=== PATIENT | male | born 1955 | race Caucasian/White ===

== ENCOUNTER 2023-11-03 20:30 | Emergency (ER) | payer MEDICARE ==
[~2023-11-03] VITALS: Ht 182.9 cm; Wt 65.8 kg
[2023-11-03 21:08] VITALS: BP 118/62; PULSE 74; RESP 14; O2SAT 98
[2023-11-03 21:12] LABS: APPEARANCE,URINE CLEAR (CLEAR); BILIRUBIN,URINE NEGATIVE (NEGATIVE); COLOR,URINE YELLOW (YELLOW); GLUCOSE, URINE (UA) NEGATIVE (NEGATIVE); KETONES,URINE NEGATIVE (NEGATIVE); LEUKOCYTE ESTERASE ,URINE 75 Leu/uL (NEGATIVE); NITRATE,URINE NEGATIVE (NEGATIVE); OCCULT BLOOD,URINE SMALL (NEGATIVE); PROTEIN,URINE 20 mg/dL (NEGATIVE); UROBILINOGEN,URINE 3 mg/dL (0.2-1.0)
[2023-11-03 21:15] LABS: ADD UA MICROSCOPIC YES
[2023-11-03 21:33] LABS: BACTERIA,URINE RARE /HPF (None Seen); MUCUS,URINE FEW LPF (None Seen); SQUAMOUS EPITHELIAL CELL,UR RARE /HPF (0-2); WBC,URINE 26-50 /HPF (0-1)
== END 2023-11-03 21:56 | disposition home or self-care (01) ==
LOC: EDH 20:30
DX: R33.9 Retention of urine, unspecified (principal); Z88.1 Allergy status to other antibiotic agents; Z96.0 Presence of urogenital implants
CPT/HCPCS: 51702; 81001; 87088

== ENCOUNTER 2024-03-07 07:55 | Day surgery (SDC) | payer OTHER ==
[2024-03-06 15:18] LABS: BASOPHILS # (AUTO) 0.07 K/uL (0.00-0.20); BASOPHILS % (AUTO) 0.5 % (0.0-5.0); EOSINOPHILS # (AUTO) 0.04 K/uL (0.00-0.70); EOSINOPHILS % (AUTO) 0.3 % (0.0-8.0); HEMATOCRIT 48.4 % (42-54); IMMATURE GRANULOCYTE ABSOLUTE 0.08 K/uL (0-1); LYMPHOCYTES # (AUTO) 2.4 K/uL (1.0-4.8); LYMPHOCYTES % (AUTO) 18.1 % (21.0-51.0); MEAN CORPUSCULAR HEMOGLOBIN 29.2 pg (27.0-33.0); MEAN CORPUSCULAR HGB CONC 32.9 g/dL (32.0-36.0); MEAN CORPUSCULAR VOLUME 88.8 fL (79-99); MONOCYTES # (AUTO) 0.8 K/uL (0.1-1.0); MONOCYTES % (AUTO) 6.3 % (3.0-13.0); NEUTROPHILS # (AUTO) 9.8 K/uL (1.8-7.7); NEUTROPHILS % (AUTO) 74.2 % (40.0-77.0); PLATELET COUNT (AUTO) 281 K/uL (130-400); RED BLOOD CELL COUNT(AUTO) 5.45 MIL/uL (4.50-6.20); RED CELL DISTRIBUTION WIDTH 13.2 % (11.0-15.5); WHITE BLOOD COUNT (AUTO) 13.2 K/uL (4.8-10.8)
[2024-03-06 15:53] VITALS: BP 134/79; PULSE 64; RESP 17
[2024-03-06 16:33] LABS: CREATININE 1.1 mg/dL (0.5-1.3); POTASSIUM 4.6 mmol/L (3.5-5.1)
[~2024-03-07] VITALS: Ht 182.9 cm; Wt 71.0 kg
[2024-03-07] VITALS (18 sets, daily range): BP systolic 114–165; BP diastolic 65–82; PULSE 88–99; RESP 10–25
[~2024-03-07 07:55] MED LIST: ROSU10TA22 PO
[2024-03-07] MEDS: LEVOFLOXACIN 500 MG/D5W 100 ML 100 ML ONE (08:44)
[2024-03-07] MEDS: LACTATED RINGERS 1000ML 1,000 ML IV ONE (08:45)
[2024-03-07] MEDS ORDERED: LIDOCAINE HCL MPF 1% 5ML VIAL ONE (09:54)
[2024-03-07] MEDS ORDERED: MIDAZOLAM HCL 1 MG/ML 2ML VIAL ONE (09:54)
[2024-03-07] MEDS ORDERED: ROCURONIUM BROMIDE 10MG/1ML 5ML VL ONE (09:54)
[2024-03-07] MEDS ORDERED: PROPOFOL 10 MG/ML 20ML VIAL IV ONE (09:54)
[2024-03-07] MEDS ORDERED: FENTANYL CITRATE PF 50 MCG/1 ML 2ML VIAL ONE (09:55)
[2024-03-07] MEDS: LEVOFLOXACIN 500 MG TABLET PO ONE (10:10)
[2024-03-07] MEDS ORDERED: DEXAMETHASONE SOD PHOSPHATE 10MG/ML 1ML VIAL ONE (10:15)
[2024-03-07] MEDS ORDERED: ONDANSETRON 4MG INJ ONE (10:15)
[2024-03-07] MEDS ORDERED: PHENYLEPHRINE HCL 10 MG/ML 1ML VIAL IV ONE (10:23)
[2024-03-07] MEDS ORDERED: SUGAMMADEX SODIUM 200 MG/2 ML VIAL IV ONE (10:42)
[2024-03-07] MEDS: IPRATROPIUM/ALBUTEROL SULFATE 3 ML SOLUTION IH ONE (11:07)
[2024-03-07] MEDS ORDERED: IPRATROPIUM/ALBUTEROL SULFATE 3 ML SOLUTION IH PRN (11:30)
[2024-03-07] MEDS: ACETAMINOPHEN 1,000 MG/100 ML VIAL IV ONE (11:53)
[2024-03-07] MEDS: PHENAZOPYRIDINE HCL 200 MG TABLET ONE (12:13)
== END 2024-03-07 12:45 | disposition home or self-care (01) ==
LOC: DAH 07:55
PROVIDERS: ATTEND Urology
DX: N32.0 Bladder-neck obstruction (principal); R39.14 Feeling of incomplete bladder emptying; R35.1 Nocturia; K21.9 Gastro-esophageal reflux disease without esophagitis; J44.9 Chronic obstructive pulmonary disease, unspecified; E78.5 Hyperlipidemia, unspecified; Z79.899 Other long term (current) drug therapy; Z79.01 Long term (current) use of anticoagulants; Z98.890 Other specified postprocedural states; Z98.49 Cataract extraction status, unspecified eye; Z87.891 Personal history of nicotine dependence; Z90.89 Acquired absence of other organs
CPT/HCPCS: 80048; 85025; 36415; 93005; 52640; 94640; A4663; J7120 ×2; A4344; A4354; J3010; J1100; J1956; J3490 ×2; J2250; J2704; J2405; J2371; A4358; C1769; A4215; A4223; A4222; A4221; A4600; A4510

== ENCOUNTER 2024-10-06 07:18 | Day surgery (SDC) | payer OTHER ==
[2024-10-02 12:20] VITALS: BP 157/82; PULSE 75; RESP 16; TEMP 97.9
[2024-10-02 12:28] LABS: BASOPHILS # (AUTO) 0.06 K/uL (0.00-0.20); BASOPHILS % (AUTO) 0.6 % (0.0-5.0); EOSINOPHILS # (AUTO) 0.05 K/uL (0.00-0.70); EOSINOPHILS % (AUTO) 0.5 % (0.0-8.0); HEMATOCRIT 48.4 % (42-54); IMMATURE GRANULOCYTE ABSOLUTE 0.11 K/uL (0-1); LYMPHOCYTES # (AUTO) 1.6 K/uL (1.0-4.8); LYMPHOCYTES % (AUTO) 16.8 % (21.0-51.0); MEAN CORPUSCULAR HEMOGLOBIN 29.3 pg (27.0-33.0); MEAN CORPUSCULAR HGB CONC 32.2 g/dL (32.0-36.0); MEAN CORPUSCULAR VOLUME 90.8 fL (79-99); MONOCYTES # (AUTO) 0.7 K/uL (0.1-1.0); MONOCYTES % (AUTO) 7.6 % (3.0-13.0); NEUTROPHILS # (AUTO) 6.8 K/uL (1.8-7.7); NEUTROPHILS % (AUTO) 73.3 % (40.0-77.0); PLATELET COUNT (AUTO) 269 K/uL (130-400); RED BLOOD CELL COUNT(AUTO) 5.33 MIL/uL (4.50-6.20); RED CELL DISTRIBUTION WIDTH 12.7 % (11.0-15.5); WHITE BLOOD COUNT (AUTO) 9.2 K/uL (4.8-10.8)
[~2024-10-06] VITALS: Ht 182.9 cm; Wt 76.6 kg
[2024-10-06] VITALS (14 sets, daily range): BP systolic 108–144; BP diastolic 67–80; PULSE 69–77; RESP 12–17; TEMP 97.5–97.8
[~2024-10-06 07:18] MED LIST changes: +ESOM40CA66 PO
[2024-10-06] MEDS ORDERED: levoFLOXacin 500 MG/D5W 100 ML 100 ML ONE (07:24)
[2024-10-06] MEDS: LACTATED RINGERS 1000ML 1,000 ML IV ONE (07:49)
[2024-10-06] MEDS ORDERED: GLYCOPYRROLATE 0.2 MG/ML 5 ML VIAL ONE (08:39)
[2024-10-06] MEDS ORDERED: ondanSETRON 4MG INJ ONE (08:39)
[2024-10-06] MEDS ORDERED: SUCCINYLCHOLINE CHLORIDE 20 MG/ML 10 ML VIAL ONE (08:39)
[2024-10-06] MEDS ORDERED: proPOFol 10 MG/ML 20ML VIAL IV ONE (08:39)
[2024-10-06] MEDS ORDERED: dexaMETHasone SOD PHOSPHATE 10MG/ML 1ML VIAL ONE (08:39)
[2024-10-06] MEDS ORDERED: LIDOCAINE PF 100MG/5ML (2%) SYRINGE 5ML ONE (08:39)
[2024-10-06] MEDS ORDERED: rocuRONium bROMide 10MG/1ML 5ML VL ONE (08:39)
[2024-10-06] MEDS ORDERED: NEOSTIGMINE METHYLSULFATE 1MG/ML IV ONE (08:39)
[2024-10-06] MEDS ORDERED: FENTanyl CITRate PF 50 MCG/1 ML 2ML VIAL ONE (08:41)
[2024-10-06] MEDS ORDERED: MIDAZOLAM HCL 1 MG/ML 2ML VIAL ONE (08:42)
[2024-10-06] MEDS ORDERED: TRIAMCINOLONE ACETONIDE 40 MG/ML 1ML VIAL ONE (08:49)
--- NOTE | 2024-10-06 10:47 | OP ---
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 History of prostate cancer. 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 History of prostate cancer. PROCEDURE PERFORMED: Cystourethroscopy, transurethral incision of bladder neck contracture with injection of Kenalog (2 mL). ANESTHESIA: General endotracheal anesthesia. SURGEON: Leela Fink MD PREOPERATIVE INDICATIONS: This is a 69-year-old gentleman who approximately over a year out of his robotic prostatectomy with an undetectable PSA of less than 0.006. The patient developed a bladder neck contracture last February and did have an incision of the bladder neck. The patient reports slowing of his urinary stream with concerns over recurrence. Cystoscopy in the office revealed scarring at the bladder neck, but a patent opening; however, I could not advance the scope through the bladder neck. The patient elects for repeat incision with injection of Kenalog. Preoperatively, the patient received Levaquin 500 mg intravenously. His preoperative creatinine was 1.0 with a glomerular filtration rate of 82. DESCRIPTION OF PROCEDURE: The patient was brought to the operating room and placed in the supine position. Following adequate general endotracheal anesthesia, he was sterilely draped and prepped in the usual fashion in the dorsal lithotomy position. CHRISTY hose and Venodyne stockings were placed on his lower extremities bilaterally and all pressure points were padded. A 22-British cystoscopic sheath with 30-degree angle lens in place was positioned per urethra and negotiated to the level of the bladder. Again, there was an opening, however, not large enough to advance a 22-British scope. The patient's distal urethra was dilated to 28-British and then a 26-British resectoscope sheath was positioned and negotiated to the level of the bladder neck. Using a Jama's knife, an incision was made at the 5 and 7 o'clock positions. This resectoscope sheath was then exchanged for a cystoscope and Pancystoscopy was performed. There were no foreign bodies, stones or tumors in the bladder. Using a Chaparro needle, 2 mL or 80 mg of Kenalog was then injected into the scar at the bladder neck. An 18-British coude tipped Sexton catheter was then inserted with 10 mL instilled into the balloon. He will be discharged home today with prescriptions for Levaquin 250 mg p.o. b.i.d., #4 Pyridium and Tylenol No. 3. He is to follow up in the office on 10/09/2024 for Sexton catheter removal. TID: [id number] RECEIPT: [id number]
[2024-10-06] MEDS: PHENAZOpyridine HCL 200 MG TAB 200 MG TABLET PO ONE (11:11)
--- NOTE | 2024-10-06 11:42 | NUR ---
Patient aox4. Denies c/o pain or discomfort.Voiced understanding to Sexton catheter care and precautions and follow up expectations. Leg bag provided. Catheter to velcro band as applied in OR. PIV discontinued with catheter tip intact. Full and complete Discharge instructions given to Patient and . All questions answered. W/C to POV with to Home.
== END 2024-10-06 11:45 | disposition home or self-care (01) ==
LOC: DAH 07:18
PROVIDERS: ATTEND Urology
DX: N32.0 Bladder-neck obstruction (principal); J44.9 Chronic obstructive pulmonary disease, unspecified; K21.9 Gastro-esophageal reflux disease without esophagitis; Z90.89 Acquired absence of other organs; Z85.46 Personal history of malignant neoplasm of prostate; Z88.1 Allergy status to other antibiotic agents; Z98.890 Other specified postprocedural states
CPT/HCPCS: 80048; 85025; 36415; 52640; A4510; A4600; A6260; A4663; J7120 ×2; A4344 ×2; A4354; J3010; J1100; J1956; J0330; J3490 ×2; J2003; J2250; J2704; J2405; J3301; J2710; A4358 ×2; A4215; A4223; A4222; A4221